=== PATIENT | female | born 1995 | race African-American/Black ===

== ENCOUNTER 2017-03-11 00:38 | Emergency (ER) | payer OTHER ==
[~2017-03-11] VITALS: Ht 165.1 cm; Wt 99.8 kg
--- NOTE | ~2017-03-11 | CR72 ---
[facility] A Service of [facility] & [facility] RADIOLOGY TEXT RESULTS PATIENT: LUNA TIDWELL LOCATION: [facility] : [birth year] UNIT #: [id number] AGE: [address]: JOSE JUAN MARTIN APRN SEX: F ORDER DR: [id number] [facility] [address] [place], [place] [address] [id number] MR#: [id number] Acc #: [id number] NAME: LUNA TIDWELL : 1995 SEX: F STUDY DATE/TIME: 03/11/2017 03:35 UNIT: [facility] ROOM: STUDY DESCRIPTION: CR Chest Single View Portable Attending Physician: Jose Juan Martin Aprn Ordering Physician: Jose Juan Martin Aprn Primary Care Physician: Shanel Elizabeth M.D. MEDICAL IMAGING REPORT This report is preliminary unless electronic signature is present EXAM Portable chest, 03/11 at 03:35 INDICATIONS Chest pain, dizziness, weakness and lightheadedness for 2 days. FINDINGS AP portable chest was obtained. No comparison. Heart is enlarged. There is elevation of the right hemidiaphragm with right base atelectasis or infiltrate. Left lung clear. Vascularity is normal. No pneumothorax. IMPRESSION Mild cardiomegaly. Elevation of the right hemidiaphragm with mild right base atelectasis or infiltrate. Dictated by... Schuyler Garland Jr., M.D. THIS IS AN ELECTRONICALLY VERIFIED REPORT Schuyler Garland Jr., M.D. at 03/14/2017 7:13 AM TIFFANY/max TD: 03/11/2017 10:00 JOB #: [id number] MEDICAL IMAGING REPORT Page 1 of 1 COPY
--- NOTE | ~2017-03-11 | EKG ---
PATIENT: LUNA TIDWELL UNIT #: [id number] Ventricular Rate: 75 BPM Atrial Rate: 75 BPM P-R Interval: 140 ms QRS Duration: 82 ms Q-T Interval: 354 ms QTC Calculation(Bezet): 395 ms P Zenia: 41 degrees Calculated R Zenia: 40 degrees Calculated T Zenia: 44 degrees Diagnosis Line: Sinus rhythm with marked sinus arrhythmia Diagnosis Line: Otherwise normal ECG Diagnosis Line: No previous ECGs available Diagnosis Line: Confirmed by COSTA FLETCHER MD ([id number]) on Diagnosis Line: 03/11/2017 11:37:50 AM INTERPRETING MD: CHANCE BETANCUR
[2017-03-11 02:42] LABS: BASOPHIL% 0.5 % (0-2.5); EOSINOPHIL# 0.2 X10e3 (0-0.7); EOSINOPHIL% 2.5 % (0.0-7.0); HEMATOCRIT 41.2 % (35.0-45.0); HEMOGLOBIN 14.4 gm/dL (12.0-16.0); LYMPHOCYTE# 3.2 X10e3 (1.0-3.5); LYMPHOCYTE% 32.9 % (17.0-45.0); MEAN CELL VOLUME 87.3 FL (83-96); MEAN CORPUSCULAR HEMOGLOBIN 30.5 PG (28-34); MEAN PLATELET VOLUME 7.6 FL (6.5-11.5); MONOCYTE# 0.7 X10e3 (0-1.0); MONOCYTE% 7.6 % (3.0-12.0); NEUTROPHIL# 5.5 X10e3 (1.5-7.1); NEUTROPHIL% 56.5 % (40-75); PLATELET COUNT 254 X10e3 (140-420); RED BLOOD COUNT 4.72 X10e (3.90-5.30); RED CELL DISTRIBUTION WIDTH 13.5 % (11.0-15.5); WHITE BLOOD COUNT 9.7 X10e3 (4.0-10.5)
[2017-03-11 02:45] LABS: DIFF IND NO
[2017-03-11 03:00] LABS: POC - CKMB 1.7 ng/mL (0.0-7.9); POC - TROPONIN <0.05 ng/mL (<=0.05)
[2017-03-11 03:05] LABS: ALBUMIN SERUM 4.2 g/dL (3.5-5.0); BILIRUBIN, DIRECT 0.1 mg/dL (0.0-0.2); BILIRUBIN,INDIRECT 0.9 mg/dL (0.0-0.9); BUN/CREATININE RATIO 12.85; CALCIUM SERUM 9.6 mg/dL (8.4-10.2); CREATININE SERUM 0.7 mg/dL (0.6-1.4); GLOM FILT RATE Estimated 123.9 mL/min (>60); POTASSIUM 3.6 mmol/L (3.5-5.1); PROTEIN TOTAL SERUM 7.8 g/dL (6.0-8.3)
[2017-03-11 03:22] LABS: URINE APPEARANCE CLEAR; URINE BILIRUBIN NEG (NEG); URINE BLOOD NEG (NEG); URINE COLOR YELLOW; URINE GLUCOSE 250 MG/DL (NEG); URINE KETONE NEG (NEG); URINE LEUKOCYTE ESTERASE TRACE (NEG); URINE NITRATE NEG (NEG); URINE PH 5.5 (5-8); URINE PROTEIN TRACE (NEG); URINE SPECIFIC GRAVITY 1.031 (1.003-1.035)
[2017-03-11 03:25] LABS: CULTURE INDICATED? YES; URBCS1 AUWI 0-2 /[HPF] (0-2); URINE BACTERIA AUWI 1+ (NEGATIVE); URINE SQUAMOUS EPITHELIAL CELL OCC /[HPF]
== END 2017-03-11 06:33 | disposition home or self-care (01) ==
LOC: CED 00:38
PROVIDERS: Nurse Practitioner Family
DX: R42 Dizziness and giddiness (principal); R07.9 Chest pain, unspecified; N39.0 Urinary tract infection, site not specified; R05 Cough; R11.10 Vomiting, unspecified; H92.09 Otalgia, unspecified ear
CPT/HCPCS: 36415; 71010; 80048; 80076; 81003; 82553; 82947; 84484; 84703; 85025; 85379; 87086; 93005; 99285